=== PATIENT | female | born 1945 | race Caucasian/White ===

== ENCOUNTER 2017-12-23 13:51 | Emergency (ER) | payer MEDICARE, MEDICAID ==
[~2017-12-23] VITALS: Ht 165.1 cm; Wt 75.0 kg
[~2017-12-23 13:51] MED LIST: AMLO10TA4
[2017-12-23] MEDS ORDERED: LIDOCAINE HCL 1% 20ML VIAL (Pyxis) INJ INFIL ONE (17:30)
[2017-12-23] MEDS ORDERED: LIDOCAINE HCL/PF 1% 10 MG/ML 5ML VIAL INL NR (17:45)
[2017-12-23 18:14] VITALS: BP 111/64
== END 2017-12-23 18:28 | disposition home or self-care (01) ==
LOC: ER 15:13
DX: L02.214 Cutaneous abscess of groin (principal); I48.91 Unspecified atrial fibrillation; I10 Essential (primary) hypertension; Z88.0 Allergy status to penicillin
CPT/HCPCS: 10060; 99283; J3490

== ENCOUNTER 2017-12-25 12:24 | Emergency (ER) | payer MEDICARE, MEDICAID ==
[~2017-12-25] VITALS: Ht 162.6 cm; Wt 98.8 kg
[2017-12-25 15:37] VITALS: BP 125/62
== END 2017-12-25 15:39 | disposition home or self-care (01) ==
LOC: ER 13:57
DX: Z48.01 Encounter for change or removal of surgical wound dressing (principal); I48.91 Unspecified atrial fibrillation; Z88.0 Allergy status to penicillin
CPT/HCPCS: 99283

== ENCOUNTER 2018-01-03 10:54 | Emergency (ER) | payer MEDICARE, MEDICAID ==
[~2018-01-03] VITALS: Ht 162.6 cm; Wt 91.0 kg
[2018-01-03 11:04] VITALS: BP 149/72
[2018-01-03] MEDS ORDERED: LIDOCAINE HCL 1% 20ML VIAL (Pyxis) INJ INFIL ONE (11:45)
[2018-01-03] MEDS ORDERED: LIDOCAINE HCL/PF 1% 10 MG/ML 5ML VIAL IJ SCH (12:00)
== END 2018-01-03 13:00 | disposition home or self-care (01) ==
LOC: ER 12:19
DX: Z48.02 Encounter for removal of sutures (principal); L02.214 Cutaneous abscess of groin
CPT/HCPCS: 10060; 99283; J3490

== ENCOUNTER 2020-05-25 09:46 | Emergency (ER) | payer MEDICARE, MEDICAID ==
[~2020-05-25] VITALS: Ht 157.5 cm; Wt 91.0 kg
[2020-05-25] MEDS ORDERED: ACETAMINOPHEN 325MG TABLET PO ONE (10:30)
[2020-05-25 11:05] VITALS: BP 130/67
== END 2020-05-25 11:06 | disposition home or self-care (01) ==
LOC: ER 09:46
DX: K11.6 Mucocele of salivary gland (principal); I10 Essential (primary) hypertension; I48.91 Unspecified atrial fibrillation; Z88.0 Allergy status to penicillin
CPT/HCPCS: 99282